=== PATIENT | male | born 1975 | race Caucasian/White ===

== ENCOUNTER 2023-04-28 09:46 | Day surgery (SDC) | payer OTHER, SELFPAY ==
[2023-04-28] VITALS (8 sets, daily range): BP systolic 98–136; BP diastolic 72–91; PULSE 49–64; RESP 14–18; TEMP 36.1–36.4; O2SAT 94–100; BMI 29.1
--- NOTE | 2023-04-28 | IMM_PTH ---
PATIENT: KEYSHA TOWNSEND LOC: EN U#:[id number] AGE/SX: 47/M ROOM: RE04/28/[address]: Dr. Gideon Hackett MD : 1975 BED: DIS: 04/28/2023 SPEC #: [id number] RECD: 05/01/23 14:09 STATUS: ANAI REAngel #: [id number] BIBI: 04/28/23 00:[address]: Gideon Hackett DEPT: IMMUNOHISTOCHEMISTRY RECD BY: Raul Gray ENTERED: 05/01/23 14:11 SP TYPE: IMMUNO OTHR DR: Dr. Yohan Moncada MD Tissues: Esophagus, NOS Procedures: P53 (initial) KI-67 (add) PHYSICIAN & INSTITUTION [place] [id number] SPECIMEN INFORMATION: Tissue Source: Gastroesophageal junction biopsy Clinical Info: Acid reflux Specimen Number: [id number] CPT code: 93991 METHODOLOGY: Deparaffinized sections of prefer/formalin-fixed tissue or PAP/DQ stained slides are incubated with monoclonal/polyclonal antibodies/oligonucleotide probes. Localization is made via biotin free immunoperoxidase method. Appropriate controls are performed and reacted as expected. Results on target cell population are indicated in the following table: RESULTS: ANTIBODY / CLONE RESULT P53 (DO-7) negative (null pattern) Ki-67 (30-9) positive, very low These tests were developed and their performance characteristics determined by [facility]. They may not have been cleared or approved by the U.S. Food and Drug Administration. The FDA has determined that such clearance or approval is not necessary. The above immunohistochemical/dualISH markers are ordered and reviewed by the Pathologist. INTERPRETATION: Gastroesophageal junction, biopsy; Negative for dysplasia. SJ/ 05/02/2023
[2023-04-28] MEDS: Lactated Ringers 1,000 ML 15 ML IV (10:07)
--- NOTE | 2023-04-28 10:38 | HP.PCM_ITS ---
History and Physical Date of Admission: 04/28/23 Intake Vital Signs 04/09/2408:15 04/09/2408:27 Height 5 ft 10 in Weight: 207 lb 6 oz BMI 29.7 BP 160/112 H 148/96 H Blood Pressure Location Rt brachial Rt brachial Position Sitting Sitting Respiration 18 Pulse 57 L Pulse Source Monitor Temp 97.3 F L Temp Source Temporal Pulse Oximetry (%) 100 Oxygen Delivery Method room air Intake Visit Reasons: HIATAL HERNIA Chief Complaint: Hiatal Hernia Housing Court Judge Required: No Is patient in pain?: No Allergies Penicillins Allergy (Mild, Verified 04/10/23 09:16) Rash Medications omeprazole 20 mg capsule,delayed release 20 mg PO DAILY 03/19/20 [History Confirmed 04/10/23] PFSH Medical History (Updated 04/10/23 @ 10:[address] Gideon Hackett MD) Acid reflux H/o back surgery Umbilical hernia Family History Mother Cervical cancer DiabetesGrandfather Myocardial infarctionFather Diabetes Hypertension Social History household members: spouse and children housing: house current occupational status: employed Smoking Status: Heavy Smoker (>10/day) Tobacco: How many years used: 20 alcohol intake: never what type of physical activity do you participate in: none do you feel safe at home: Yes HPI HPI HPI: Patient is a 47-year-old male with longstanding history of GERD. He has been on a PPI for many years and is still having severe GERD especially if he lays down. He had workup at an outside hospital. ROS General General: No weight change, appetite, fatigue, colon cancer, breast cancer or weakness HEENT HEENT: No difficulty swallowing, eye injury, eye surgery, swollen glands or hoarseness Endo Endocrine: No thyroid disease, diabetes mellitus, thyroid cancer, Hair loss, heat intolerance or cold intolerance Skin Skin: No rash or changing moles Breast Breast: No left breast lump, right breast lump, nipple discharge, breast pain, abnormal mammogram, abnormal US or breast enlargement Musc Musculoskeletal: No back problems, arthritis, rheumatoid arthritis, gout or joint pain Cardio Cardiovascular: No murmur, pacemaker, heart disease, atrial fibrillation, high blood pressure, heart attack, heart stent, palpitations, shortness of breat with exertion or chest pain Psych Psychiatric: No depression, anxiety or hearing voices Resp Respiratory: No shortness of breath, No sleep apnea, No cough, No COPD, No asthma, No emphysema and No wheezing Gastro Gastrointestinal: No abdominal pain, No nausea or vomiting, No diarrhea, No constipation, No blood in stool, Yes acid reflux, No hemorrhoids, No ulcers, No gallbladder problem and No black,tarry stools Adrien Hematologic: No blood thinners, No blood disorders, No bleeding, No anemia and No blood clots Neuro Neurologic: No system reviewed and no additional complaints, except as documented, No as per HPI, No abnormal gait, No abnormal hearing, No abnormal movements, No abnormal speech, No behavioral changes, No burning sensations, No confusion, No convulsions, No disequilibrium, No dizziness, No localized weakness, No frequent falls, No headache(s), No lack of coordination, No loss of vision, No memory loss, No numbness, No other visual disturbances, No radicular pain, No restless legs, No sensory deficit, No syncope, No tingling, No tremor(s), No weakness and No other Exam Const General: cooperative Orientation: alert and oriented x3 HENMT Head: normal to inspection Neck Neck: normal visual inspection and full ROM Chest Chest palpation & inspection: normal inspection of the chest Resp Effort & Inspection: normal respiratory effort Auscultation: clear to auscultation bilaterally Cardio Rate: regular rate Rhythm: regular rhythm GI Inspection: non-distended Palpation: soft and nontender Skin General: no rashes or lesions noted Neuro General: patient alert and patient oriented x3 Extrem General: full ROM Psych Appearance: grossly normal Mental Status: mental status grossly normal Assessment and Plan Assessment and Plan (1) Acid reflux: Status: Acute Qualifiers: Esophagitis presence: with esophagitis Esophagitis bleeding: unspecified whether hemorrhage Qualified Code(s): K21.00 - Gastro-esophageal reflux disease with esophagitis, without bleeding Plan: The patient has longstanding GERD. He does have a hiatal hernia confirmed on CT scan. I am having the CT scan images ported over so I can see them. He also has had EGD and manometry in the past. EGD revealed Bravo's esophagus but I am unable to evaluate the pictures. The manometry report did not come through either and I will request that. I would also like to repeat an EGD to evaluate where the hiatal hernia is and to evaluate and do further biopsies of the Bravo's esophagus. I explained endoscopy in detail to the patient. I explained the risks including but not limited to stroke or heart attack with anesthesia, perforation of the GI tract, bleeding, infection. I explained that any of these could necessitate further emergency surgery. The patient understands and all questions were answered sufficiently. The patient wishes to proceed with procedure. Gideon Hackett MD Pager: [facility] [address] [place] [address] [address] [place] [address] Office: I have examined the patient and the H&P has been reviewed. There are no clinical changes since date of exam.
--- NOTE | 2023-04-28 11:00 | EGD_PTH ---
PATIENT: KEYSHA TOWNSEND LOC: EN U#:[id number] AGE/SX: 47/M ROOM: RE04/28/[address]: Dr. Gideon Hackett MD : 1975 BED: DIS: 04/28/2023 SPEC #: [id number] RECD: 04/28/23 12:03 STATUS: ANAI DE PAZAngel #: [id number] BIBI: 04/28/23 11:[address]: Gideon Hackett DEPT: SURGICAL PATHOLOGY RECD BY: Humaira Barcenas ENTERED: 04/28/23 12:29 SP TYPE: EGD BIOPSY OT DR: Dr. Yohan Moncada MD Tissues: Esophagus, NOS Procedures: Surgery Specimen Level IV HEADER OPERATION: EGD with biopsy PRE-OP DIAGNOSIS: Acid reflux TISSUE SUBMITTED: Gastroesophageal junction MICROSCOPIC DIAGNOSIS Gastroesophageal junction, biopsy; Fragments of gastroesophageal mucosa with Intestinal metaplasia (goblet cell metaplasia) consistent Bravo's esophagus. Chronic inflammation. Negative for dysplasia. See comment. SJ/mr 05/01/2023 COMMENT Alcian blue/PAS stain with matched control is used in the evaluation of the specimen. Immunohistochemistry ([id number]) for P53 and Ki-67 will be performed and results will be reported separately. MICROSCOPIC DESCRIPTION Slides are reviewed. GROSS DESCRIPTION Received in fixative is one container labeled with the patient's name and designated GE junction biopsy. The specimen consists of multiple irregular fragments of light srivastava soft tissue that in aggregate measure 1.0 x 0.5 x 0.1 cm. The specimen is totally submitted in one cassette. / 04/28/2023 TC:5 CPT: 90846,95421
--- NOTE | 2023-04-28 11:12 | OP.CCLET_ITS ---
04/28/2023 Yohan Moncada Re : Upper GI endoscopy procedure for Tommy Moncada This procedure was performed on Friday, April 28, 2023. My impressions and recommendations are as follows: Impressions : - Medium-sized hiatal hernia. - Esophageal mucosal changes secondary to established short-segment Bravo's disease. Biopsied. - Normal stomach. - Normal examined duodenum. Recommendations : - Discharge patient to home. - Resume previous diet. - Continue present medications. - Await pathology results. - Return to my office in 1 week. My findings are described in the full procedure note, which is enclosed. If I can be of further assistance, please feel free to contact me at Doctor phone number(s): , Work: . Sincerely, Gideon Hackett MD 04/28/2023 11:12:12 AM This report has been signed electronically.
--- NOTE | 2023-04-28 11:12 | OP.EGD_ITS ---
Patient Name: Tommy Soares Procedure Date: 04/28/2023 10:44 AM Date of : 1975 Age: 47 Procedure: Upper GI endoscopy Indications: Follow-up of Bravo's esophagus, Hiatal hernia Providers: Gideon Hackett MD Referring MD: Yohan Moncada Medicines: Propofol per Anesthesia Patient Profile: This is a 47 year old male. Refer to note in patient chart for documentation of history and physical. Complications: No immediate complications. Estimated blood loss: Minimal. Procedure: Pre-Anesthesia Assessment: - Prior to the procedure, a History and Physical was performed, and patient medications and allergies were reviewed. The patient's tolerance of previous anesthesia was also reviewed. The risks and benefits of the procedure and the sedation options and risks were discussed with the patient. All questions were answered, and informed consent was obtained. Prior Anticoagulants: The patient has taken no anticoagulant or antiplatelet agents. After reviewing the risks and benefits, the patient was deemed in satisfactory condition to undergo the procedure. After obtaining informed consent, the endoscope was passed under direct vision. Throughout the procedure, the patient's blood pressure, pulse, and oxygen saturations were monitored continuously. The gastroscope was introduced through the mouth, and advanced to the fourth part of duodenum. The upper GI endoscopy was accomplished without difficulty. The patient tolerated the procedure well. Scope In: 11:01:16 AM Scope Out: 11:06:34 AM Total Procedure Duration Time 0 hours 5 minutes 18 seconds Findings: A medium-sized hiatal hernia was present. There were esophageal mucosal changes secondary to established short-segment Bravo's disease present at the gastroesophageal junction. The maximum longitudinal extent of these mucosal changes was 3 cm in length. Mucosa was biopsied with a cold forceps for histology in a targeted manner at intervals of 1 cm in the lower third of the esophagus. One specimen bottle was sent to pathology. The stomach was normal. The examined duodenum was normal. diaphragm at 40 cm, GE junction at 36 cm Impression: - Medium-sized hiatal hernia. - Esophageal mucosal changes secondary to established short-segment Bravo's disease. Biopsied. - Normal stomach. - Normal examined duodenum. Recommendation: - Discharge patient to home. - Resume previous diet. - Continue present medications. - Await pathology results. - Return to my office in 1 week. Procedure Code(s): --- Professional --- 30738, Esophagogastroduodenoscopy, flexible, transoral; with biopsy, single or multiple Diagnosis Code(s): --- Professional --- K44.9, Diaphragmatic hernia without obstruction or gangrene K22.70, Bravo's esophagus without dysplasia CPT copyright 2021 [employer]. All rights reserved. The codes documented in this report are preliminary and upon remote medical coder review may be revised to meet current compliance requirements. Gideon Hackett MD 04/28/2023 11:12:12 AM This report has been signed electronically. Number of Addenda: 0 Note Initiated On: 04/28/2023 10:44 AM
== END 2023-04-28 12:04 | disposition home or self-care (01) ==
LOC: EN 09:49 → AC 09:51
PROVIDERS: PCP Family Medicine; Referring Provider Family Medicine; Visit Provider Surgery
PROC: 0DJ08ZZ Inspection of Upper Intestinal Tract, Via Natural or Artificial Opening Endoscopic (ICD-10-PCS; CPT 43235; principal; 2023-04-28 10:55)
DX: K22.70 Barrett's esophagus without dysplasia (principal); K44.9 Diaphragmatic hernia without obstruction or gangrene; K21.00 Gastro-esophageal reflux disease with esophagitis, without bleeding; F17.200 Nicotine dependence, unspecified, uncomplicated; Z79.899 Other long term (current) drug therapy
CPT/HCPCS: 43239; 88305; 88341; 88342; J7120; J2405

== ENCOUNTER 2023-05-22 13:44 | Inpatient (IN) | payer OTHER, SELFPAY ==
--- NOTE | 2023-05-19 07:55 | EKG12_ITS ---
Test Reason : PRE-OP Blood Pressure : / mmHG Vent. Rate : 060 BPM Atrial Rate : 060 BPM P-R Int : 172 ms QRS Dur : 074 ms QT Int : 406 ms P-R-T Axes : 042 002 007 degrees QTc Int : 406 ms Normal sinus rhythm Normal ECG Confirmed by Tommy Mitchell ([id number]), city editor MALLY RITTER ([id number]) on 05/19/2023 1:31:03 PM Referred By: Gideon Hackett Confirmed By:Tommy Mitchell
[2023-05-19 08:46] LABS: Hematocrit 47.7 % (40-54); Mean Corp Hgb Conc 33.5 g/dL (32-36); Mean Corpuscular Hgb 31.4 pg (27.0-32.0); Mean Corpuscular Volume 93.7 fL (80-94); Mean Platelet Vol. 11.5 fl (6.2-12.0); Platelet Count 206 K/mm3 (150-450); RBC Distribution Width CV 12.2 % (11.6-14.6); RBC Distribution Width SD 42.5 fl (35.1-43.9); Red Blood Count 5.09 M/mm3 (4.6-6.2); White Blood Count 6.2 K/mm3 (4.4-11.0)
[2023-05-22] VITALS (13 sets, daily range): BP systolic 132–174; BP diastolic 92–123; PULSE 50–89; RESP 16–18; TEMP 17.2–36.8; O2SAT 95–99; BMI 28.5
[2023-05-22] MEDS: Lactated Ringers 1,000 ML 15 ML IV ×2 (10:06→15:03)
--- NOTE | 2023-05-22 10:29 | PCM.HP.BLA ---
History and Physical Date of Admission: 05/22/23 Intake Vital Signs 04/27/2409:08 05/04/2414:32 Height 5 ft 11 in BP 147/90 H Blood Pressure Location Lt brachial Position Sitting Respiration 17 Pulse 82 Pulse Source Monitor Intake Visit Reasons: 1wk f/u hiatal hernia Chief Complaint: f/u hiatal hernia Is patient in pain?: No Allergies Penicillins Allergy (Mild, Verified 05/11/23 14:01) Rash Medications omeprazole 20 mg capsule,delayed release 20 mg PO DAILY 03/19/20 [History Confirmed 05/11/23] [facility] Medical History (Updated 05/11/23 @ 14:06 by Ana Rosa Aguila) Acid reflux Former smoker Gastric reflux H/o back surgery History of hiatal hernia Umbilical hernia Family History Mother Cervical cancer DiabetesGrandfather Myocardial infarctionFather Diabetes Hypertension Social History household members: spouse and children housing: house current occupational status: employed Smoking Status: Former smoker Tobacco: How many years used: 20 alcohol intake: never what type of physical activity do you participate in: none do you feel safe at home: Yes HPI HPI HPI: Patient is a 47-year-old male who returns to discuss Romario fundoplication for his acid reflux. ROS General General: No weight change, appetite, fatigue, colon cancer, breast cancer or weakness HEENT HEENT: No difficulty swallowing, eye injury, eye surgery, swollen glands or hoarseness Endo Endocrine: No thyroid disease, diabetes mellitus, thyroid cancer, Hair loss, heat intolerance or cold intolerance Skin Skin: No rash or changing moles Breast Breast: No left breast lump, right breast lump, nipple discharge, breast pain, abnormal mammogram, abnormal US or breast enlargement Musc Musculoskeletal: No back problems, arthritis, rheumatoid arthritis, gout or joint pain Cardio Cardiovascular: No murmur, pacemaker, heart disease, atrial fibrillation, high blood pressure, heart attack, heart stent, palpitations, shortness of breat with exertion or chest pain Psych Psychiatric: No depression, anxiety or hearing voices Resp Respiratory: No shortness of breath, No sleep apnea, No cough, No COPD, No asthma, No emphysema and No wheezing Gastro Gastrointestinal: No abdominal pain, No nausea or vomiting, No diarrhea, No constipation, No blood in stool, Yes acid reflux, No hemorrhoids, No ulcers, No gallbladder problem and No black,tarry stools Adrien Hematologic: No blood thinners, No blood disorders, No bleeding, No anemia and No blood clots Neuro Neurologic: No system reviewed and no additional complaints, except as documented, No as per HPI, No abnormal gait, No abnormal hearing, No abnormal movements, No abnormal speech, No behavioral changes, No burning sensations, No confusion, No convulsions, No disequilibrium, No dizziness, No localized weakness, No frequent falls, No headache(s), No lack of coordination, No loss of vision, No memory loss, No numbness, No other visual disturbances, No radicular pain, No restless legs, No sensory deficit, No syncope, No tingling, No tremor(s), No weakness and No other Exam Const General: cooperative Orientation: alert and oriented x3 HENMT Head: normal to inspection Neck Neck: normal visual inspection and full ROM Chest Chest palpation & inspection: normal inspection of the chest Resp Effort & Inspection: normal respiratory effort Auscultation: clear to auscultation bilaterally Cardio Rate: regular rate Rhythm: regular rhythm GI Inspection: non-distended Palpation: soft and nontender Skin General: no rashes or lesions noted Neuro General: patient alert and patient oriented x3 Extrem General: full ROM Psych Appearance: grossly normal Mental Status: mental status grossly normal Assessment and Plan Assessment and Plan (1) Acid reflux: Status: Acute Qualifiers: Esophagitis presence: with esophagitis Esophagitis bleeding: unspecified whether hemorrhage Qualified Code(s): K21.00 - Gastro-esophageal reflux disease with esophagitis, without bleeding Plan: I performed an EGD on the patient and did biopsies which showed no dysplasia but it was positive for Bravo's esophagus. Patient had his full workup done at [facility]. I discussed Romario fundoplication with him in detail. I discussed the risks of the procedure such as bleeding, infection, injury to surrounding organs such as the heart or aorta or spleen or stomach or esophagus itself. Patient understands all the risks and is willing to proceed. He was given postoperative diet instructions and activity instructions. Gideon Hackett MD Pager: [facility] [address] [place] [address] [address] [place] [address] Office: I have examined the patient and the H&P has been reviewed. There are no clinical changes since date of exam.
[2023-05-22] MEDS: Clindamycin 900 MG/50 ML BAG 75 MG IV (11:04)
[2023-05-22] MEDS: Bupivacaine Mpf 0.5% 30 ML VIAL (11:22)
--- NOTE | 2023-05-22 13:36 | OP.PCM_ITS ---
Report of Operation Date of Procedure: 05/22/23 Pre-Operative Diagnosis: Hiatal hernia and GERD Post-Operative Diagnosis: Same Surgery/Procedure Performed:: 1. Laparoscopic Romario fundoplication with hiatal hernia repair 2. EGD Type of Anesthesia: General/Regional Estimated Blood Loss (mL): 50 Description of Procedure: Patient was brought back to the operating room and general anesthesia was induced. The abdomen was prepped and draped in usual sterile fashion. A midline incision was made superior to the umbilicus and deepened to the fascia which was elevated and incised. A port was placed into the abdomen is insufflated to 15 mmHg. Next in the upper abdomen the left lobe of the liver was located in the midline of the left lobe a 5 mm port was placed in the skin for the Hero retractor. Hero was retractor was then placed under direct visualization and elevated the left lobe of the liver and it was locked in place. Next the patient was placed in steep reverse Trendelenburg position. Under direct visualization a 5 mm port was placed in the right upper quadrant as well as two 5 mm ports in the left upper quadrant. The stomach was grasped with an atraumatic grasper and traction was held downward. Next on the patient's right side the clear window through the omentum was taken down using harmonic. Dissection was carried until the right crura was encountered. The right crura was then skeletonized. The esophagus was pressed posteriorly and the anterior crura was dissected free. Next the area under the esophagus was dissected free to create a window. Then with the gastric fat being retracted to the right the greater curvature was taken down using the harmonic all the way up to the attachments to the spleen. The left crura was then dissected free as well. Once both crura was dissected free a window was made posterior to the esophagus and a Padmini drain was placed. Padmini drain was used to retract the esophagus inferiorly. Dissection was carried out in the mediastinum to mobilize the esophagus freely. Both the left and right vagus nerves were identified and spared. Once dissection was complete and there was enough esophagus in the abd omen the NG was removed and the crura was reapproximated with 3 interrupted Surgidac sutures using the Endo suture device. The the greater curvature was wrapped around posteriorly behind the esophagus. Next a 54 Latvian bougie was placed by anesthesia with no complication. Next the wrap was performed. Stomach was wrapped around the anterior surface of the esophagus and sutured to itself. The most superior suture also included the esophagus and crura. Posteriorly another suture was placed from the stomach to the crura to keep the posterior placement. Next the area was irrigated and suctioned dry. There was some bleeding coming from the lesser curvature down by the distal stomach. The area was sprayed with hemoblast and pressure was held. Once there was good hemostasis the abdomen was irrigated and suctioned dry again. The patient was then lied flat and the bougie was removed and an EGD was performed. A well- lubricated EGD scope was placed down the mouth and into the esophagus and the stomach. It passed easily into the stomach from the esophagus. There was minimal bleeding. It was retroflexed and the wrap appeared intact. Next the area was insufflated into the stomach. The abdomen was inspected and there was no bubbling from under the water and the leak test was normal. Next the stomach was suctioned of air and the scope was removed inspecting the esophagus on the way out which appeared normal. Next the abdomen was suctioned dry. There was good hemostasis. The midline large port was removed and using Stefan Cameron needle and direct visualization and the fascia was closed with 2 interrupted 0 Vicryl sutures. The air was allowed to desufflate from the abdomen and the incisions were injected with local anesthetic. All incisions were closed with interrupted 4-0 Monocryl sutures. Patient was awoken and taken to PACU in stable condition and tolerated the procedure well. Admit VTE Documentation VTE Mechan Device Prophylaxis: SCD's
[2023-05-22] MEDS: 0.9% Normal Saline (1000mL) 1,000 ML 100 ML IV (16:08)
[2023-05-22] MEDS: 0.9% Saline Lock 10 ML Syringe IV ×3 (16:10→21:11)
[2023-05-22] MEDS: Ondansetron 4 MG/2 ML Vial IV (16:55)
[2023-05-22] MEDS: HYDROmorphone 1 MG/ML Syringe IV ×2 (16:56→21:11)
[2023-05-22] MEDS: Tamsulosin HCl 0.4 MG Capsule PO (17:26)
[2023-05-22] MEDS: Acetaminophen 650 MG/20 ML UDC PO (21:11)
[2023-05-22] MEDS: proCHLORPERazine 10 MG/2 ML Vial IV (21:11)
[2023-05-23] VITALS (13 sets, daily range): BP systolic 127–164; BP diastolic 87–107; PULSE 62–100; RESP 16–18; TEMP 36.6–37; O2SAT 94–100
[2023-05-23] MEDS: 0.9% Normal Saline (1000mL) 1,000 ML 100 ML IV ×3 (00:33→21:56)
[2023-05-23] MEDS: 0.9% Saline Lock 10 ML Syringe IV ×3 (04:47→12:34)
[2023-05-23] MEDS: HYDROmorphone 1 MG/ML Syringe IV ×2 (04:47→09:57)
[2023-05-23] MEDS: Ondansetron 4 MG/2 ML Vial IV ×3 (04:47→21:00)
--- NOTE | 2023-05-23 06:50 | PCM.PN.SRG ---
Subjective Subjective Patient has some issues urinating overnight and required straight cath yesterday evening. He has been urinating since then after I started him on Flomax. Patient reports he feel like he is urinating normally. He did have some nausea overnight. Abdominal pain is controlled. Denies reflux. Objective Data Objective Data Vital Signs: Vital Signs Temp Pulse Resp BP Pulse Ox O2 Del Method O2 Flow Rate 98.3 F 85 16 154/107 H 95 Nasal Cannula 2 05/23/23 04:40 05/23/23 04:40 05/23/23 04:40 05/23/23 04:40 05/23/23 04:40 05/23/23 04:40 05/23/23 04:40 Oxygen Flow Rate (L/min) 2 Oxygen Delivery Method Nasal Cannula Weight: 204 lb 5.896 oz Body Mass Index (BMI) 28.5 Intake & Output: Intake and Output for Last 24 Hours 05/21/23 05/22/23 05/23/23 23:59 23:59 23:59 Intake Total 2066.75 / 2066.75 841.67 / 841.67 Output Total 900 / 1100 1100 / 1100 Balance 1166.75 / 966.75 -258.33 / -258.33 Lab / Micro Data 05/19/23 08:17 Physical Exam Const oriented x3 and no apparent distress Resp normal respiratory effort GI soft to palpation Palpation: tender epigastric Assessment & Plan Assessment/Plan (1) Hiatal hernia: PLAN: Plan The patient had Romario fundoplication yesterday. He will have an upper GI today and as long as that shows contrast getting through I will order clear liquids. He did have some urinary retention but after Flomax and a straight cath he is doing better and urinating normally now. Await morning labs. Pain control. Encourage I-S and ambulation. Hopeful for discharge this afternoon. Gideon Hackett MD Pager: [facility] [address] [place] [address], [address] [place] [phone] Office:
[2023-05-23 07:12] LABS: Absolute Lymphocyte Count 0.95 X10^3/uL (0.83-4.51); Absolute Neutrophil Count 10.4 X10^3/uL (2.0-7.7); Basophil# 0.01 X10^3/uL; Basophil% 0.1 % (0-1); Hematocrit 47.3 % (40-54); Hemoglobin 16.2 g/dL (13.0-16.5); Lymphocyte # 0.95 X10^3/ul (0.83-4.51); Lymphocyte % 7.7 % (19-41); Mean Corp Hgb Conc 34.2 g/dL (32-36); Mean Corpuscular Hgb 31.6 pg (27.0-32.0); Mean Corpuscular Volume 92.2 fL (80-94); Mean Platelet Vol. 11.5 fl (6.2-12.0); Monocyte# 0.93 X10^3/uL; Monocyte% 7.5 % (0-10); NRBC Flagged by Analyzer 0 % (0-5); Neutrophil # 10.42 X10^3/uL (2.7-7.7); Neutrophil % 84.4 % (47-70); Platelet Count 203 K/mm3 (150-450); RBC Distribution Width CV 12.2 % (11.6-14.6); RBC Distribution Width SD 41.7 fl (35.1-43.9); Red Blood Count 5.13 M/mm3 (4.6-6.2); White Blood Count 12.4 K/mm3 (4.4-11.0)
[2023-05-23 07:38] LABS: ALB/GLOB Ratio 1.2 RATIO (0.9-2.4); AST(SGOT) 82 U/L (15-37); Alanine Aminotransfer ALT/SGPT 154 U/L (16-61); Albumin, Serum 3.8 g/dL (3.2-5.0); Alkaline Phosphatase 49 U/L (45-117); Anion Gap 4 (5-15); BUN 12 mg/dL (7-18); BUN/Creat Ratio 13.6 RATIO (10-20); Calcium,Total 8.5 mg/dL (8.5-10.1); Chloride 106 mmol/L (98-107); Creatinine, Serum 0.88 mg/dL (0.70-1.30); EST Glomerular Filtration Rate 97 mL/min (>60); Est Glom Filt Rate - Afr Amer 118 mL/min (>60); Estimated Creatinine Clearance 118.14 ml/min; Globulin 3.1 g/dL (2.2-4.2); Glucose 133 mg/dL (74-106); Potassium 3.7 mmol/L (3.5-5.1); Protein, Total 6.9 g/dL (6.4-8.2); Sodium Level 138 mmol/L (136-145)
--- NOTE | 2023-05-23 08:15 | RAD_ITS ---
EXAMINATION: UPPER GI SERIES INDICATION: Male, 47 years status post Romario fundoplication. FLUOROSCOPY TIME (if supplied): (0:54) minutes/seconds. 42.87 mGy. 23 spot images were obtained. TECHNIQUE: Radiographic and fluoroscopic images of the distal esophagus, stomach, and proximal small intestine were obtained following the oral ingestion of barium. COMPARISON: None. FINDINGS: The patient is status post Romario fundoplication. There is evidence of narrowing of the gastroesophageal junction in keeping with recent the surgery. The length of the narrowing measures 1.1 cm. Contrast is seen entering the stomach although there is delay of emptying from the esophagus into the stomach. The patient was put in the supine position. There was evidence of gastroesophageal reflux. . RAD/Upper GI Single Contrast IMPRESSION: 1. Status post Romario fundoplication with narrowing of the distal esophagus at the level of the gastroesophageal junction over a 1.1 cm. Delay of emptying of the esophagus into the stomach with evidence of gastroesophageal reflux in the supine position. Electronically Signed: Dimas Vargas MD at 8:40 EDT ,
--- NOTE | 2023-05-23 10:40 | DS.PCM_ITS ---
Documented by User: Sandra OROZCO PA-C 05/24/23 16:53 Providers Date of Admission: 05/23/23 Primary Care Physician: Dr. Yohan Moncada MD Reason For Visit: Laparoscopic, Romario Fundoplication Diagnosis Discharge Diagnosis (1) Hiatal hernia: Status: Acute Code(s): K44.9 - Diaphragmatic hernia without obstruction or gangrene Medications at Discharge Home Medications acetaminophen 650 mg/20.3 mL oral solution 650 mg (20.3 mL) PO Q6H PRN PRN Pain 1-10 Or Fever #0 mL 05/23/23 oxycodone 5 mg tablet 5 mg PO Q6H PRN pain 3 days #10 tabs 05/23/23 tamsulosin 0.4 mg capsule 0.4 mg PO QHS #7 caps 05/23/23 lisinopril 5 mg tablet 5 mg PO DAILY #10 tabs 05/24/23 Hospital Course Operations - (Laparoscopic Romario fundoplication with hiatal hernia repair) Procedures EGD Summary of Care Provided Minutes Spent on Discharge: 30 Hospital Course: Patient is a 47 y/o M who presents for an elective laparoscopic Romario fund oplication. Dr. Hackett performed a laparoscopic Romario fundoplication with hiatal hernia repair and EGD on 05/22/23. Patient tolerated the procedure well. Patient had an uneventful hospitalization. Upon discharge, patient notes intermittent abdominal discomfort. He denies nausea, vomiting, fever. He is able to tolerate a soft food diet. Patient became tachycardiac and continued to have high blood pressure. CT scan chest/abdomen was ordered along with a hospitalist consult. Patient was provided with 1 dose of 5 mg Lisinopril PO. He will be sent home with a script for Lisinopril for 10 days and follow-up with his PCP in [address] chest and abdomen did not demonstrate a leak or PE. Patient will follow-up with Dr. Hackett in 7-10 days. Weight / BMI Weight Weight: 204 lb 5.896 oz Body Mass Index (BMI) 28.5 ABG / Lab / Microbiology Data 05/24/23 06:35 05/24/23 06:35 Laboratory: Laboratory Results - last 24 hr 05/23/23 06:32: WBC 12.4 H, RBC 5.13, Hgb 16.2, Hct 47.3, MCV 92.2, MCH 31.6, MCHC 34.2, RDW Std Deviation 41.7, RDW Coeff of Wilfredo 12.2, Plt Count 203, MPV 11.5, Immature Gran % (Auto) 0.300, Neut % (Auto) 84.4 H, Lymph % (Auto) 7.7 L, [place] % (Auto) 7.5, Eos % (Auto) 0.0, Baso % (Auto) 0.1, Absolute Neuts (auto) 10.4 H, Absolute Lymphs (auto) 0.95, Nucleated RBC % 0, Sodium 138, Potassium 3.7, Chloride 106, Carbon Dioxide 28.0, Anion Gap 4 L, BUN 12, Creatinine 0.88, Estim Creat Clear Calc 118.14, Est GFR (MDRD) Af Amer 118, Est GFR (MDRD) Non-Af 97, BUN/Creatinine Ratio 13.6, Glucose 133 H, Calcium 8.5, Total Bilirubin 0.80, AST 82 H, ALT 154 H, Alkaline Phosphatase 49, Total Protein 6.9, Albumin 3.8, Globulin 3.1, Albumin/Globulin Ratio 1.2 Radiography Diagnostic Testing: Radiology Impression Upper GI Series 05/23/23 08:15 IMPRESSION: 1. Status post Romario fundoplication with narrowing of the distal esophagus at the level of the gastroesophageal junction over a 1.1 cm. Delay of emptying of the esophagus into the stomach with evidence of gastroesophageal reflux in the supine position. Electronically Signed: Dimas Vargas MD at 8:40 EDT , D/C Instructions Discharge Diet: Soft diet (Instructions provided. You may also add in Protein shakes three times per day to supplement protein) May shower in (days): 1 Lifting Restricted to (Lbs): 10 Lifting Restrictions: No lifting greater than 10 pounds until your follow-up Call your doctor if your incision/area has: Continuous Slow Oozing, Sudden Increased Bleeding, Increased Pain/ Swelling, Increased Redness, Foul Smelling Discharge and Swelling at the incision site Call your doctor if you observe: Fever of 101 or Higher Suture Line Care: Avoid Pulling/Pushing and Avoid Pinching/Bending Remove Dressing in: 2 days Additional Dressing/Incision Instructions: Remove plastic dressings in 2 days. Leave steri-strips in place for 1 week. You may shower over top of the steri- strips. Please Follow Up With: Gideon Hackett MD When: Please call our office to schedule a follow-up appointment 7-10 days after your surgery date. Please call [phone] option #2 for the motel front desk clerk. Thank you Discharge Plan Admission Admit Date/Time: 05/23/23 15:52 Primary Reason for Your Visit: S/p Laparoscopic Romario fundoplication Attending Provider: Gideon Hackett Primary Care Provider: Yohan Moncada Consulting Providers: Calos Kimbrough; Andria Francis; Renetta Adamson; Christina Washburn; Ilia Wells; Ilia Blanton; Cain Ross; Benjamin Blake; Nataly Pérez; Teja Hahn; Beth Ha; Freddie Thompson; Riley Rios; Zaki Snyder; Ira Welsh; Isaac Vargas Instructions Additional Instructions / Restrictions: Laparoscopic Romario fundoplication or Toupet procedure Diet ? This is outlined on a separate diet instruction sheet (see next page) Activity ? You may drive in 3-5 days but not while taking narcotic pain medication. ? I encourage walking. You may go up steps, one at a time. ? Do not swim or use hot tubs for 2 weeks. Lifting ? You may lift up to 10 pounds for the first 2 weeks. You may advance to 20 pounds for the next 3 weeks. Dressings/Incision ? You may shower OVER your plastic dressings ? Do NOT tub bathe for 1 week ? Leave plastic dressings on for 3 days. ? When plastic dressings are removed, you will find steri strips. It is okay to continue showering with them in place, pat them dry. ? You may remove steri-strips after 1 week. We recommend getting them soaking wet for easier removal. Medications ? Anesthesia used during surgery and pain medications may cause constipation. I recommend initiating on the day of surgery a fiber supplement like, Metamucil, Citrucel, FiberCon, Benefiber, or a generic form of these medications. 1 heaping tablespoon in water daily. You may continue to utilize any bowel regimen or oral laxatives that you routinely take. ? As long as you are not intolerant to Tylenol, acetaminophen, ibuprofen, Motrin, Advil, Aleve, or similar medications, I would recommend transitioning to these nita-ybw-dvlnalh medicines as soon as possible instead of continued use of narcotic pain medication. Follow up ? You should call [facility] soon after surgery, at [phone] option 1 to make a follow up appointment for 7-10 days after your surgery. Diet after Hiatal Hernia Repair and Gastric Reflux Surgery After surgery there will be residual swelling at the repair of your diaphragm and the gastric wrap to inhibit reflux. This will progressively resolve over 3 to 12 weeks., it is for this reason that a gradual progression of diet Is recommended. It is recommended that you eat smaller more frequent meals, to not overly distend your stomach. It is also recommended that you drink and eat while sitting fully upright so that gravity can assist with the food movement. Try to eat more slowly taking your time while eating. You will want to avoid gas producing foods. This would include carbonated beverages and beer. Avoid using a straw. Avoid gum, and tobacco. For the first 5 to 7 days, it is recommended that you be on a liquid diet. This would include any type of food which will dissolve at body temperature. This would include soups (including creamed soups WITHOUT large chunks). You may utilize nutritional supplements such as Ensure, Sustacal, Boost, [place] instant breakfast drinks or generic brands. Broth, Jell-O, popsicles, and non- carbonated beverages should be well tolerated. Milkshakes, ice cream, sorbet, pudding, or yogurt are permissible. Fruit juices without excessive pulp or smoothies without food chunks are fine, you may then advance to applesauce or thin cream of wheat/oatmeal or very thin mashed potatoes. The second week after surgery pending any difficulties you should be able to adv ance to fluffy soft rice and chopped pasta. All going well you may advance to small, well chewed pieces of chicken or flaky fish. The third week after surgery you should be able to advance to most foods except for tough meats like dry pork roast, or steak, at this point most patients are able to tolerate bread products, nuts, and raw vegetables. After the third week if all foods have been successful you may try small, well chewed pieces of tougher meats using caution. If at any time you have trouble swallowing return to a clear liquid diet immediately and then once again gradually advance the diet as noted above. If you believe that food is lodged, then please contact your physician. Discharge Orders/Prescriptions Prescriptions: New acetaminophen 650 mg/20.3 mL Solution 650 mg PO Q6H PRN PRN (Reason: Pain 1-10 Or Fever) Qty: 0 0RF tamsulosin 0.4 mg Capsule 0.4 mg PO QHS Qty: 7 0RF oxycodone 5 mg tablet 5 mg PO Q6H PRN (Reason: pain) 3 Days Qty: 10 0RF lisinopril 5 mg tablet 5 mg PO DAILY Qty: 10 0RF Discontinued omeprazole 20 mg capsule,delayed release(DR/EC) 20 mg PO DAILY Referrals / Follow Up: Gideon Hackett MD [Med Staff - Active Staff] - (Please contact our office to schedule a follow-up appointment for 7-10 days.) Yohan Moncada MD [Primary Care Provider] - 05/31/23 (Follow-up with PCP within 1 weeks to address hypertension) Disposition Disposition (needs filled in before D/C Order can be placed): Home, Self Care Charges/Coding Visit Charges Inpatient E&M: 34815 Disch Hosp (no charge) Documented by User: Dr. Gideon Hackett MD 05/24/23 16:37 Providers Date of Admission: 05/23/23 Reason For Visit: Laparoscopic, Romario Fundoplication Diagnosis Discharge Diagnosis (1) Hiatal hernia: Status: Acute Code(s): K44.9 - Diaphragmatic hernia without obstruction or gangrene Medications at Discharge Home Medications acetaminophen 650 mg/20.3 mL oral solution 650 mg (20.3 mL) PO Q6H PRN PRN Pain 1-10 Or Fever #0 mL 05/23/23 oxycodone 5 mg tablet 5 mg PO Q6H PRN pain 3 days #10 tabs 05/23/23 tamsulosin 0.4 mg capsule 0.4 mg PO QHS #7 caps 05/23/23 lisinopril 5 mg tablet 5 mg PO DAILY #10 tabs 05/24/23 ABG / Lab / Microbiology Data 05/24/23 06:35 05/24/23 06:35 D/C Instructions Discharge Diet: - (Full Liquid diet as directed before surgery) Discharge Activity: May Not Drive (for 2-3 days and while on narcotics) and May Shower Lifting Restricted to (Lbs): 15 Lifting Restrictions: 15 lbs for 6 weeks Call your doctor if you observe: Inability to have a bowel movement and Uncontrolled pain Remove Dressing in: 2 days (Remove clear bandages tomorrow, remove steri strips in 7 days) Cleanse incision/area with: Soap & Water When: Please call our office to schedule a follow-up appointment for 7-10 days after your surgery date. Please call [phone] option #2 for the motel front desk clerk. Thank you Meaningful Use Info Meaningful Use Diagnoses (Choose all that apply): None applicable Discharge Plan Admission Admit Date/Time: 05/23/23 15:52 Primary Reason for Your Visit: S/p Laparoscopic Romario fundoplication Attending Provider: Gideon Hackett Primary Care Provider: Yohan Moncada Consulting Providers: Calos Kimbrough; Andria Francis; Renetta Adamson; Christina Washburn; Ilia Wells; Ilia Blanton; Cain Ross; Benjamin Blake; Nataly Pérez; Teja Hahn; Beth Ha; Freddie Thompson; Riley Rios; Zaki Snyder; Ira Welsh; Isaac Vargas Instructions Additional Instructions / Restrictions: Laparoscopic Romario fundoplication or Toupet procedure Diet ? This is outlined on a separate diet instruction sheet (see next page) Activity ? You may drive in 3-5 days but not while taking narcotic pain medication. ? I encourage walking. You may go up steps, one at a time. ? Do not swim or use hot tubs for 2 weeks. Lifting ? You may lift up to 10 pounds for the first 2 weeks. You may advance to 20 pounds for the next 3 weeks. Dressings/Incision ? You may shower OVER your plastic dressings ? Do NOT tub bathe for 1 week ? Leave plastic dressings on for 3 days. ? When plastic dressings are removed, you will find steri strips. It is okay to continue showering with them in place, pat them dry. ? You may remove steri-strips after 1 week. We recommend getting them soaking wet for easier removal. Medications ? Anesthesia used during surgery and pain medications may cause constipation. I recommend initiating on the day of surgery a fiber supplement like, Metamucil, Citrucel, FiberCon, Benefiber, or a generic form of these medications. 1 heaping tablespoon in water daily. You may continue to utilize any bowel regimen or oral laxatives that you routinely take. ? As long as you are not intolerant to Tylenol, acetaminophen, ibuprofen, Motrin, Advil, Aleve, or similar medications, I would recommend transitioning to these gggn-ghe-vayixsm medicines as soon as possible instead of continued use of narcotic pain medication. Follow up ? You should call [facility] soon after surgery, at [phone] option 1 to make a follow up appointment for 7-10 days after your surgery. Diet after Hiatal Hernia Repair and Gastric Reflux Surgery After surgery there will be residual swelling at the repair of your diaphragm and the gastric wrap to inhibit reflux. This will progressively resolve over 3 to 12 weeks., it is for this reason that a gradual progression of diet Is sophie mmended. It is recommended that you eat smaller more frequent meals, to not overly distend your stomach. It is also recommended that you drink and eat while sitting fully upright so that gravity can assist with the food movement. Try to eat more slowly taking your time while eating. You will want to avoid gas producing foods. This would include carbonated beverages and beer. Avoid using a straw. Avoid gum, and tobacco. For the first 5 to 7 days, it is recommended that you be on a liquid diet. This would include any type of food which will dissolve at body temperature. This would include soups (including creamed soups WITHOUT large chunks). You may utilize nutritional supplements such as Ensure, Sustacal, Boost, [place] instant breakfast drinks or generic brands. Broth, Jell-O, popsicles, and non- carbonated beverages should be well tolerated. Milkshakes, ice cream, sorbet, pudding, or yogurt are permissible. Fruit juices without excessive pulp or smoothies without food chunks are fine, you may then advance to applesauce or thin cream of wheat/oatmeal or very thin mashed potatoes. The second week after surgery pending any difficulties you should be able to advance to fluffy soft rice and chopped pasta. All going well you may advance to small, well chewed pieces of chicken or flaky fish. The third week after surgery you should be able to advance to most foods except for tough meats like dry pork roast, or steak, at this point most patients are able to tolerate bread products, nuts, and raw vegetables. After the third week if all foods have been successful you may try small, well chewed pieces of tougher meats using caution. If at any time you have trouble swallowing return to a clear liquid diet immediately and then once again gradually advance the diet as noted above. If you believe that food is lodged, then please contact your physician. Discharge Orders/Prescriptions Prescriptions: New acetaminophen 650 mg/20.3 mL Solution 650 mg PO Q6H PRN PRN (Reason: Pain 1-10 Or Fever) Qty: 0 0RF tamsulosin 0.4 mg Capsule 0.4 mg PO QHS Qty: 7 0RF oxycodone 5 mg tablet 5 mg PO Q6H PRN (Reason: pain) 3 Days Qty: 10 0RF lisinopril 5 mg tablet 5 mg PO DAILY Qty: 10 0RF Discontinued omeprazole 20 mg capsule,delayed release(DR/EC) 20 mg PO DAILY Referrals / Follow Up: Gideon Hackett MD [Med Staff - Active Staff] - (Please contact our office to schedule a follow-up appointment for 7-10 days.) Yohan Moncada MD [Primary Care Provider] - 05/31/23 (Follow-up with PCP within 1 weeks to address hypertension) Disposition Disposition (needs filled in before D/C Order can be placed): Home, Self Care
[2023-05-23] MEDS: Acetaminophen 650 MG/20 ML UDC PO ×2 (13:01→20:02)
[2023-05-23] MEDS: hydrALAZINE 20 MG/ML Vial 10 MG IV ×2 (13:20→20:03)
[2023-05-23] MEDS: Tamsulosin HCl 0.4 MG Capsule PO (16:14)
[2023-05-23] MEDS: Metoprolol Tartrate 25 MG Tablet PO (16:14)
--- NOTE | 2023-05-23 17:01 | NURSING ---
returned to unit, updated
--- NOTE | 2023-05-23 18:27 | NURSING ---
pt up with wants to recheck bp after back from walking before more meds. states noted sl tremor shiver at times but afeb. pt states pain mild and tolerable at this time. states abd feels sl more distended, negative flatus. belching continues. with patient ambulating halls.
[2023-05-23] MEDS: oxyCODONE 5 MG Tablet PO (19:08)
[2023-05-24] VITALS (10 sets, daily range): BP systolic 143–153; BP diastolic 91–109; PULSE 80–119; RESP 18; TEMP 36.7–37.2; O2SAT 96–99
[2023-05-24] MEDS: proCHLORPERazine 10 MG/2 ML Vial IV (00:05)
[2023-05-24] MEDS: Acetaminophen 650 MG/20 ML UDC PO ×3 (04:01→16:11)
--- NOTE | 2023-05-24 06:55 | RAD_ITS ---
INDICATION: distended EXAMINATION/TECHNIQUE: X-RAY - XR Abdomen 1 View COMPARISON: May 23, 2023 FINDINGS: BOWEL GAS PATTERN: Non-obstructive. No bowel or stomach distention. There is residual contrast within the ileum and ascending colon. FREE AIR: Not assessed on a single supine view. ORGANOMEGALY: Not seen. CALCIFICATIONS: No abnormal calcifications observed. LOWER CHEST: No acute pathology. BONES AND SOFT TISSUES: No acute pathology. RAD/Abdomen Single View (Portable) IMPRESSION: Non-obstructive bowel gas pattern. Retained contrast within the distal ileum and descending colon. Electronically Signed: Agnes Tobar MD at 9:15 EDT ,
[2023-05-24 07:30] LABS: Absolute Lymphocyte Count 1.24 X10^3/uL (0.83-4.51); Absolute Neutrophil Count 8.5 X10^3/uL (2.0-7.7); Basophil# 0.05 X10^3/uL; Basophil% 0.5 % (0-1); Hematocrit 43.7 % (40-54); Hemoglobin 14.7 g/dL (13.0-16.5); Lymphocyte # 1.24 X10^3/ul (0.83-4.51); Lymphocyte % 11.3 % (19-41); Mean Corp Hgb Conc 33.6 g/dL (32-36); Mean Corpuscular Hgb 31.3 pg (27.0-32.0); Mean Corpuscular Volume 93.2 fL (80-94); Mean Platelet Vol. 11.7 fl (6.2-12.0); Monocyte# 1.11 X10^3/uL; Monocyte% 10.1 % (0-10); NRBC Flagged by Analyzer 0 % (0-5); Neutrophil # 8.49 X10^3/uL (2.7-7.7); Neutrophil % 77.6 % (47-70); Platelet Count 197 K/mm3 (150-450); RBC Distribution Width CV 12.6 % (11.6-14.6); RBC Distribution Width SD 43.4 fl (35.1-43.9); Red Blood Count 4.69 M/mm3 (4.6-6.2)
[2023-05-24 07:52] LABS: Anion Gap 2 (5-15); BUN 11 mg/dL (7-18); BUN/Creat Ratio 12.5 RATIO (10-20); Calcium,Total 8.9 mg/dL (8.5-10.1); Chloride 110 mmol/L (98-107); Creatinine, Serum 0.88 mg/dL (0.70-1.30); EST Glomerular Filtration Rate 98 mL/min (>60); Est Glom Filt Rate - Afr Amer 118 mL/min (>60); Estimated Creatinine Clearance 118.14 ml/min; Glucose 114 mg/dL (74-106); Potassium 3.7 mmol/L (3.5-5.1); Sodium Level 139 mmol/L (136-145)
[2023-05-24] MEDS: hydrALAZINE 20 MG/ML Vial 10 MG IV (08:46)
[2023-05-24] MEDS: LORazepam 1 MG Tablet PO (09:22)
--- NOTE | 2023-05-24 10:18 | PCM.PN.SRG ---
Subjective Subjective The patient was having severe nausea yesterday so discharge was held. He was not tolerating clears either. He reports that overnight he was able to tolerate water and he started passing gas and his nausea improved. Objective Data Objective Data Vital Signs: Vital Signs Temp Pulse Resp BP Pulse Ox O2 Del Method O2 Flow Rate 99.0 F 97 18 143/101 H 97 Room Air 2 05/24/23 08:57 05/24/23 09:00 05/24/23 08:57 05/24/23 08:57 05/24/23 08:57 05/24/23 08:57 05/23/23 09:03 Oxygen Flow Rate (L/min) 2 Oxygen Delivery Method Room Air Weight: 204 lb 5.896 oz Body Mass Index (BMI) 28.5 Intake & Output: Intake and Output for Last 24 Hours 05/22/23 05/23/23 05/24/23 23:59 23:59 23:59 Intake Total 2066.75 / 2066.75 3278.34 / 3578.34 450 / 450 Output Total 900 / 1100 1400 / 1400 Balance 1166.75 / 966.75 1878.34 / 2178.34 450 / 450 Lab / Micro Data 05/24/23 06:35 05/24/23 06:35 Labs: Laboratory Results - last 24 hr 05/24/23 06:35: WBC 11.0, RBC 4.69, Hgb 14.7, Hct 43.7, MCV 93.2, MCH 31.3, MCHC 33.6, RDW Std Deviation 43.4, RDW Coeff of Wilfredo 12.6, Plt Count 197, MPV 11.7, Immature Gran % (Auto) 0.500, Neut % (Auto) 77.6 H, Lymph % (Auto) 11.3 L, [place] % (Auto) 10.1 H, Eos % (Auto) 0.0, Baso % (Auto) 0.5, Absolute Neuts (auto) 8.5 H, Absolute Lymphs (auto) 1.24, Nucleated RBC % 0, Sodium 139, Potassium 3.7, Chloride 110 H, Carbon Dioxide 27.0, Anion Gap 2 L, BUN 11, Creatinine 0.88, Estim Creat Clear Calc 118.14, Est GFR (MDRD) Af Amer 118, Est GFR (MDRD) Non-Af 98, BUN/Creatinine Ratio 12.5, Glucose 114 H, Calcium 8.9 Radiography Diagnostic Testing: Radiology Impression KUB X-Ray 05/24/23 06:55 IMPRESSION: Non-obstructive bowel gas pattern. Retained contrast within the distal ileum and descending colon. Electronically Signed: Agnes oTbar MD at 9:15 EDT , Physical Exam Const oriented x3 and no apparent distress Resp normal respiratory effort GI soft to palpation and non-tender Assessment & Plan Assessment/Plan (1) Hiatal hernia: PLAN: Patient is postoperative day 2 from hiatal hernia repair and Romario fundoplication. He was able to tolerate some clears after the nausea subsided and he started passing gas last night. I will advance him to full's and see how he tolerates that. I ordered a KUB this morning shows the contrast made to the colon there is no distended bowel. I would like to order was of Ativan because I think some of his hypertension may be due to anxiety. He has been having a lot of hypertension we have tried multiple medications which do not seem to help. I advised him that he should follow-up with his PCP after this visit to discuss his blood pressure. Gideon Hackett MD Pager: [facility] [address] [place] [address], [address] [place] [address] Office:
--- NOTE | 2023-05-24 10:58 | CASEMGMT ---
KELLY CARROLL Assessment: Face to Face with pt for initial transition planning/care coordination assessment. RN CARLY introduced self and role at [facility], pt voices understanding and consents to assessment. Pt is A&O x4 and answers all questions appropriately at this time. Pt sitting up in chair in no distress with at bedside. Care providers, pharmacy, and demographics verified/updated. Admitting Dx: lap gil fundoplication PCP:Antwan Specialists:Roxann, HAROON Preferred Pharmacy:[facility] Insurance:[employer] Prescription Benefit: yes LNOK:Wendy Soares, Living Arrangements: Pt lives with and 2 children in a two story home with 3 steps to enter. Pt reports he will stay on main level for a few days after dc. Pt reports he is I in ADL's and denies concerns at home. Transportation: Pt drives self and denies concerns with transportation. DME:Does not use but has access to [facility] HHC/SNF:Denies hx of Pt states no concerns with going home at time of dc. Pt states no further concerns/needs. CM to follow. Advised pt to ask CM if any further question/concerns/needs arise, voices understanding. Pt Goal:Home Plan:Home
--- NOTE | 2023-05-24 12:25 | EKG12_ITS ---
Test Reason : Blood Pressure : / mmHG Vent. Rate : 103 BPM Atrial Rate : 103 BPM P-R Int : 152 ms QRS Dur : 070 ms QT Int : 330 ms P-R-T Axes : 037 000 005 degrees QTc Int : 432 ms Sinus tachycardia Nonspecific T wave abnormality Abnormal ECG When compared with ECG of 19-MAY-2023 08:01, Vent. rate has increased BY 43 BPM Nonspecific T wave abnormality now evident in Anterolateral leads Confirmed by MELINA MARQUEZ ([id number]), editor continuity and script FABIEN LOPEZ ([id number]) on 05/29/2023 9:30:24 AM Referred By: Gideon Hackett Confirmed By:MELINA MARQUEZ
--- NOTE | 2023-05-24 14:03 | PN.HOSP_ITS ---
Reason for Visit Reason for Visit: Diagnoses Diaphragmatic hernia without obstruction or gangrene (05/23/23) Encounter for other preprocedural examination (05/23/23) Subjective Subjective Patient's status post OR 05/22/2023 with laparoscopic Romario fundoplication with hiatal hernia repair by Dr. Hackett with since then reported per surgery ser vice ongoing mild frontal throbbing headache and issues with elevated systolic and diastolic blood pressures with no previous history as well as persistent ongoing generalized abdominal discomfort. Discussed these concerns with patient and he notes that since he was able to get his glasses and also start drinking caffeine again as he drinks several cups of caffeinated coffee a day his headache has completely resolved. He denies any blurry vision, dyspnea or chest pain. He does state that he does have a marked family history on both sides of hypertension. He has never had elevated blood pressures nor has he been on any blood pressure medication. He previously smoked but has since quit. He does report some ongoing generalized abdominal discomfort, worse with movement reporting that at rest his pain is 3 out of 10 but if he moves it 6-7 out of 10 in severity. He has been up and walking without issue. Discussed current presentation with nausea the day prior but no emesis tolerating clear liquids however given blood pressure and tachycardia some concern for possible complication therefore pending follow-up CT abdomen per surgery direction. Patient currently denies fevers, chills, nausea, emesis, chest pain or dyspnea. Objective Data Objective Data Vital Signs: Vital Signs Temp Pulse Resp BP Pulse Ox O2 Del Method O2 Flow Rate 98.1 F 93 18 143/101 H 96 Room Air 2 05/24/23 13:26 05/24/23 13:26 05/24/23 13:26 05/24/23 13:26 05/24/23 13:26 05/24/23 11:42 05/23/23 09:03 Oxygen Flow Rate (L/min) 2 Oxygen Delivery Method Room Air Weight: 204 lb 5.896 oz Body Mass Index (BMI) 28.5 Intake & Output: Intake and Output for Last 24 Hours 05/22/23 05/23/23 05/24/23 23:59 23:59 23:59 Intake Total 2066.75 / 2066.75 3278.34 / 3578.34 1050 / 1050 Output Total 900 / 1100 1400 / 1400 Balance 1166.75 / 966.75 1878.34 / 2178.34 1050 / 1050 Lab / Micro Data 05/24/23 06:35 05/24/23 06:35 Labs: Laboratory Results - last 24 hr 05/24/23 06:35: WBC 11.0, RBC 4.69, Hgb 14.7, Hct 43.7, MCV 93.2, MCH 31.3, MCHC 33.6, RDW Std Deviation 43.4, RDW Coeff of Wilfredo 12.6, Plt Count 197, MPV 11.7, Immature Gran % (Auto) 0.500, Neut % (Auto) 77.6 H, Lymph % (Auto) 11.3 L, [place] % (Auto) 10.1 H, Eos % (Auto) 0.0, Baso % (Auto) 0.5, Absolute Neuts (auto) 8.5 H, Absolute Lymphs (auto) 1.24, Nucleated RBC % 0, Sodium 139, Potassium 3.7, Chloride 110 H, Carbon Dioxide 27.0, Anion Gap 2 L, BUN 11, Creatinine 0.88, Estim Creat Clear Calc 118.14, Est GFR (MDRD) Af Amer 118, Est GFR (MDRD) Non-Af 98, BUN/Creatinine Ratio 12.5, Glucose 114 H, Calcium 8.9 Radiography Diagnostic Testing: Radiology Impression KUB X-Ray 05/24/23 06:55 IMPRESSION: Non-obstructive bowel gas pattern. Retained contrast within the distal ileum and descending colon. Electronically Signed: Agnes Tobar MD at 9:15 EDT , Physical Exam Narrative Physical Examination: General: Awake, alert, oriented x 3 and cooperative, seated upright in the SD bedside chair, currently rates discomfort 3 out of 10 as he is resting. Skin: Normal color, normal turgor, no icterus, no cyanosis except status post recent OR with abdominal dressings in place with no drainage. HEENT: AT/NC, EOMI, PERRLA, MMM, currently has glasses on. Lungs: CTA bilaterally, moderate effort, mild decrease BL bases, no rales, ronchi or wheezing. Heart: Currently regular rate and rhythm; no gallop, rub audible. Abdomen: Soft, expected mild diffuse generalized discomfort but no rebound or guarding, very mildly distended, mildly hyperactive BS, no appreciated HSM but difficult exam given recent surgery with pain with deeper palpation. Extremities: No cyanosis, clubbing, or edema. Neurological: Patient awake, alert, oriented as noted, cognitive function intact; pupils equally reactive to light and accommodation, cranial nerves sebastian sly normal, moving all 4 extremities, no focal deficits, strength mildly to moderately globally decreased which would be expected recent OR. Psychiatric: Affect appears normal, interactive, appears comfortable despite pain rating, no acute evidence of depressive or anxiety feelings. Assessment & Plan Assessment/Plan (1) Elevated BP without diagnosis of hypertension: PLAN: Plan The patient is a 47 y/o M w/ PMHx: Former tobacco use, GERD w/ history of Hiatal hernia who presents to the [facility] on 05/22/23 with history of outpatient EGD with biopsies demonstrating Bravo's esophagus but no dysplasia with decision for Romario fundoplication given ongoing symptoms. #1. GERD with Bravo's esophagus: Status post 05/22/2023 Romario fundoplication per general surgeon Dr. Hackett, as noted some concern given elevated blood pressure and occasional tachycardia as well as ongoing abdominal discomfort and nausea although improved today for possible postoperative leak, currently planned CT scan, post-operative pain management, bowel regimen, DVT Prophylaxis per Surgery discretion. #2. Elevated BP without hypertensive diagnosis: Patient was administered hydralazine which from discussion with nursing staff led to mild tachycardia following usage and did not decrease his blood pressure as well as trials of beta-sandra therapy without marked improvement. Given the fact that there is some concern for postop pain and possibly a leak the blood pressure certainly could be from this however from discussion with surgery patient is very concerned as initially patient did have a headache however this is completely resolved with caffeine intake and using his glasses but to be cautious we will trial just a very low-dose lisinopril and continue to monitor. Do not want to certainly drop this blood pressure if there is something else going on intra- abdominal he that would require repeat intervention and this would be expected response. If patient does have new diagnosis of hypertension certainly could follow-up outpatient and does not need to remain inpatient as long as asymptomatic from his elevated blood pressures which was discussed with patient and at length. #3. Former tobacco use: Encourage continued tobacco cessation. #4. DVT prophylaxis: Encourage continued SCDs, chemoprophylaxis per surgery discretion given recent OR. Charges/Coding Visit Charges Inpatient E&M: 46067 Subs Hosp L3
[2023-05-24] MEDS: Metoprolol Tartrate 5 MG/5 ML Vial IV (14:07)
[2023-05-24] MEDS: 0.9% Saline Lock 10 ML Syringe IV (14:08)
[2023-05-24] MEDS: Lisinopril 5 MG Tablet PO (14:08)
--- NOTE | 2023-05-24 14:40 | NURSING ---
PT STARTED DRINKING CONTRAST THAT JUST ARRIVED @ 1440
--- NOTE | 2023-05-24 15:38 | NURSING ---
PT TO CT SCAN AFTER DRINKING ORAL CONTRAST
--- NOTE | 2023-05-24 15:52 | CT_ITS ---
STUDY: CT CHEST T ABDOMEN WITH CONTRAST REASON FOR EXAM: Male, 47 years old. Tachycardia post-op r/o PE and Romario leak -- s/p lap Romario 05/21 [place] RADIATION DOSAGE (If Supplied By Facility): CTDIvol = ( 12.95 ) mGy, DLP = ( 1117.30 ) mGycm TECHNIQUE: Transaxial imaging was performed following intravenous administration of Oral and amp; IV Gastrografin and amp; 100mL Isovue-300. Individualized dose optimization techniques were used for this CT. COMPARISON: No relevant priors. FINDINGS: CHEST Small left pleural effusion and left lower lobe atelectasis.. Heart appears mildly enlarged and there is a tiny pericardial effusion. No appreciable coronary artery calcification. Mild pneumomediastinum postsurgically.. Normal hilar regions. Normal unenhanced pulmonary arteries. Normal aorta arch and descending thoracic aorta. Dorsal spine demonstrates degenerative changes Postop change status post Romario fundoplication with narrowing of the gastric esophageal junction. ABDOMEN Normal liver. Normal gallbladder and extrahepatic biliary system. Normal spleen. Normal pancreas. Normal bilateral adrenal glands. Normal right kidney. Tiny left renal cyst which will not require additional imaging Normal visualized stomach. Normal small intestine. There is oral contrast noted within the distal small bowel and colon.. . Minor atherosclerotic changes of the aorta without evidence for aneurysm. Normal inferior vena cava. Normal retroperitoneum. Normal abdominal wall. Lumbar spine demonstrates mild degenerative change. CT/CT Chest AND Abd W/ Contrast IMPRESSION: Mild atelectasis and small left pleural effusion. Narrowed gastroesophageal junction status post Romario fundoplication. No evidence for Romario leak. No evidence for pulmonary embolus Electronically Signed: Radames Lees MD at 16:16 EDT ,
[2023-05-24] MEDS: Tamsulosin HCl 0.4 MG Capsule PO (16:10)
[2023-05-24] MEDS: oxyCODONE 5 MG Tablet PO (16:10)
--- NOTE | 2023-05-24 16:36 | NURSING ---
DR CARRILLO NOTIFIED THAT ct IS READ AND SAID THAT FROM HIS STANDPOINT, PT CAN BE DC'D
== END 2023-05-24 17:52 | disposition home or self-care (01) | DRG 328 ==
LOC: SDC 15:09 → MS3 15:09
PROVIDERS: Anesthesiology; Physician Assistant; Admitting Provider Surgery; PCP Family Medicine; Referring Provider Surgery; Visit Provider Surgery
PROC: (CPT 43325; principal; 2023-05-22 10:40)
DX: K44.9 Diaphragmatic hernia without obstruction or gangrene (principal); K21.00 Gastro-esophageal reflux disease with esophagitis, without bleeding; K22.70 Barrett's esophagus without dysplasia; R03.0 Elevated blood-pressure reading, without diagnosis of hypertension; R00.0 Tachycardia, unspecified; R33.8 Other retention of urine; Z79.899 Other long term (current) drug therapy; Z87.891 Personal history of nicotine dependence; Z82.49 Family history of ischemic heart disease and other diseases of the circulatory system
CPT/HCPCS: 36415; 71260; 74018; 74160; 74240; 80048; 80053; 85025; 85027; 93005; 94668; 99252; J7030; J7120; Q9967; A4216; G0463; J2405